=== PATIENT | male | born 1990 | race Caucasian/White ===

== ENCOUNTER 2016-11-17 16:11 | Inpatient (IN) | payer BC ==
--- NOTE | 2016-11-17 15:23 | EDPHY ---
H & P Constitutional: Initial Vital Signs Temperature (C) 36.8 C 11/17/16 16:27 Heart Rate 78 11/17/16 16:27 Respiratory Rate 20 11/17/16 16:27 Blood Pressure 164/102 H 11/17/16 16:27 O2 Sat (%) 100 11/17/16 16:27 O2 Delivery Mode Nasal Cannula O2 (L/minute) 4 Allergies/Adverse Reactions: No Known Allergies Allergy (Unverified 11/17/16 16:29) Home Medications: Medication Instructions Recorded Finasteride 11/17/16 Medical Decision Making ED Course/Re-evaluation: CHIEF COMPLAINT: Injury to right femur HISTORY OF PRESENT ILLNESS: The patient is a 26 y/o male arriving via EMS from [place] with a suspected right femur fracture. He was snowboarding and struck a tree with his right leg at unknown speeds. He denies head strike, loss of consciousness, midline spinal pain, or weakness or paresthesias. He had immediate pain in his right thigh aggravated significantly by movement or palpation with associated mid-shaft deformity. EMS did not apply traction splint because he assumed the fracture was too proximal, however manual traction significantly improved the patient's pain. He has been neurovascularly intact throughout transport. The patient also complains of [id number] left shoulder pain and left knee pain. He received 10mg IV Valium, 200mcg IV Fentanyl, and 4mg IV Zofran en route. Last PO intake at noon. REVIEW OF SYSTEMS: A 10 point review of systems was performed and is negative with the exception of the elements mentioned in the history of present illness. PHYSICAL EXAM: HR, BP, O2 Sat, RR. Temp noted General Appearance: Alert, well hydrated, appropriate, and uncomfortable- appearing. Head: Atraumatic without scalp tenderness or obvious injury Eyes: Pupils equal, round, reactive to light and accommodation, EOMI, no trauma , no injection. Ears: Clear bilaterally, no perforation, normal landmarks Nose: Atraumatic, no rhinorrhea, clear. Throat: There is no erythema or exudates, no lesions, normal tonsils, mucus membranes moist. Neck: Supple, nontender, no lymphadenopathy. Respiratory: No retractions, no distress, no wheezes, and no accessory muscle use. Lungs are clear to auscultation bilaterally. Cardiovascular: Regular rate and rhythm, no murmurs, rubs, or gallops. Bilateral carotid, radial, dorsalis pedis, and posterior tibial pulses intact. Good capillary refill all extremities. Gastrointestinal: Abdomen is soft, nontender, non-distended, no masses, no rebound, no guarding, no peritoneal signs. Musculoskeletal: Deformity and severe tenderness to right mid-femur. Pelvis is stable. Otherwise normal active ROM of all extremities, atraumatic. Neurological: Alert, appropriate, and interactive. The patient has normal DTRs and non-focal cranial nerves, motor, sensory, and cerebellar exam. Skin: No rashes, good turgor, no nodules on palpation. Abrasion to left lateral lower leg. Past medical history: denies Past surgical history: denies Family history: noncontributory Social history: on Spring Break from [place]. Friend at bedside. DIAGNOSTICS/PROCEDURES/CRITICAL CARE TIME: Study: Right hip Indication: Pain, trauma Results: Right hip x-ray was obtained. The results of the study are negative. The study was read by the radiologist, Dr. Valladares. I viewed the images myself on the PACS system. Study: Right femur Indication: Pain, trauma Results: Right femur x-ray was obtained. The results of the study are Displaced and overlapping mid femoral shaft fracture. The study was read by the radiologist, Dr. Valladares. I viewed the images myself on the PACS system. Study: Right tib/fib Indication: Pain, trauma Results: Right tib/fib x-ray was obtained. The results of the study are negative. The study was read by the radiologist, Dr. Valladares. I viewed the images myself on the PACS system. DIFFERENTIAL DIAGNOSIS: The differential diagnosis for the patient's trauma included but was not limited to intracranial injury, long bone and pelvic bone fractures, spinal injury, intra-abdominal injury, and intra-thoracic injury. MEDICAL DECISION MAKING: I upgraded this patient to a Limited Trauma Activation upon hearing the call-in report prior to his arrival. 1614: Met EMS upon arrival and took report. This is a healthy 26 y/o male who presents with severe right thigh pain secondary to traumatic injury while snowboarding. This appears to be an isolated injury; no other significant trauma noted on exam. He is neurovascularly intact with no evidence of compartment syndrome. The skin over the injury is intact. Plan for imaging and pain management. 1616: Cervical spine cleared clinically by myself using [place] [facility] rules. C-collar removed. 1mg IV Dilaudid and 30mg IV Toradol ordered for pain. 1635: Reassessed patient. Patient reports his pain has improved with Dilaudid and traction splint to a 3/10. Preliminary portable x-rays show midshaft displaced femur fracture. Ortho paged. 1643: Consulted with Dr. Flanagan, orthopedic surgeon. He will review films and call me back. 1658: Consulted with Dr. Flanagan. He requests trauma service admit patient. 1705: Consulted with Dr. Walker, surgeon. She will assess patient in the ED and admit patient. Presurgical CBC and CHEM ordered. - Data Points Medications Given: Discontinued Medications Hydromorphone HCl (Dilaudid) 1 mg IVP EDNOW ONE Stop: 11/17/16 16:28 Last Admin: 11/17/16 16:32 Dose: 1 mg Ketorolac Tromethamine (Toradol) 30 mg IVP EDNOW ONE Stop: 11/17/16 16:28 Last Admin: 11/17/16 16:32 Dose: 30 mg Departure - Departure Disposition: [facility] Inpatient Acute Clinical Impression: Closed right femoral fracture Qualifiers: Encounter type: initial encounter Femur location: shaft Fracture morphology: transverse Fracture alignment: displaced Qualified Code(s): S72.321A - Displaced transverse fracture of shaft of right femur, initial encounter for closed fracture Condition: Good Referrals: Patient,NotPresent [Unknown] - As per Instructions Report Scribed for: Jose Fletcher Report Scribed by: Marina Kelley Date of Report: 11/17/16 Time of Report: 16:12
[2016-11-17] MEDS ORDERED: KETOROLAC 30 MG/1 ML SDV IVP ONE (16:27)
[2016-11-17] MEDS ORDERED: HYDROmorphONE/DILAUDID 1 MG/ML SYR IVP ONE (16:27)
[2016-11-17] MEDS ORDERED: ACETAMINOPHEN 325 MG TAB PO PRN (17:48)
[2016-11-17] MEDS ORDERED: ONDANSETRON 4 MG/2 ML VIAL IVP PRN (17:48)
[2016-11-17 18:56] LABS: % IMMATURE GRANULYOCYTES 0.5 % (0.0-1.1); ABSOLUTE IMMATURE GRANULOCYTES 0.06 10^3/uL (0.00-0.10); ADD DIFF? NO; ADD MORPH? NO; ADD SCAN? NO; ATYPICAL LYMPHOCYTE FLAG 0 (0-99); FRAGMENT RBC FLAG 0 (0-99); HEMATOCRIT 39.2 % (40.0-51.0); HEMOGLOBIN 13.8 g/dL (13.7-17.5); LEFT SHIFT FLG 0 (0-99); LIPEMIA HEMOLYSIS FLAG 90 (0-99); MEAN CELL HEMOGLOBIN 30.1 pg (27.9-34.1); MEAN CELL HEMOGLOBIN CONCENTR. 35.2 g/dL (32.4-36.7); MEAN CELL VOLUME 85.4 fL (81.5-99.8); MEAN PLATELET VOLUME 10.1 fL (8.7-11.7); PLATELET CLUMPS FLAG 0 (0-99); PLATELET COUNT 228 10^3/uL (150-400); RED BLOOD CELL COUNT 4.59 10^6/uL (4.40-6.38); RED CELL DISTRIBUTION WIDTH 11.9 % (11.5-15.2)
[2016-11-17 19:22] LABS: ANION GAP 14 mEq/L (8-16); CALCIUM 8.7 mg/dL (8.5-10.4); CARBON DIOXIDE 20 mEq/l (22-31); CHLORIDE 107 mEq/L (97-110); CREATININE 0.9 mg/dL (0.7-1.3); GLOMERULAR FILTRATION RATE > 60; GLUCOSE 119 mg/dL (70-100); POTASSIUM 4.3 mEq/L (3.5-5.2); SODIUM 141 mEq/L (134-144)
[2016-11-17] MEDS ORDERED: BUPIVACAINE/EPI 0.5% 30 ML SDV ONE (19:50)
[2016-11-17] MEDS ORDERED: BACITRACIN 50,000 UNITS/10 ML SYR IRR ONE (19:51)
[2016-11-17] MEDS ORDERED: POLYMYXIN B SULFATE 500,000 UNIT/10 ML SYR IRR ONE (19:51)
--- NOTE | 2016-11-17 20:00 | GHP ---
[f rep st] HISTORY AND PHYSICAL DATE OF ADMISSION: 11/17/2016 CHIEF COMPLAINT: Isolated right femur fracture. HISTORY OF PRESENT ILLNESS: Terence Abraham is a 26-year-old man traveling from [place] who was snowboarding today and fell. His snowboard wrapped around a tree and he struck the tree with his femur. He was brought down as a limited trauma. He was not wearing a helmet. He denies loss of consciousness. He denies any neurovascular problems. PAST MEDICAL HISTORY: None. PAST SURGICAL HISTORY: None. FAMILY HISTORY: Noncontributory. SOCIAL HISTORY: He does not use tobacco products. He does not use drugs. He lives in [place]. He is in school studying IT. REVIEW OF SYSTEMS: Other than leg pain, 10-point review of systems is negative. PHYSICAL EXAM: GENERAL: Pleasant, well-nourished, well-groomed man in no acute distress. HEENT: Normocephalic. No gross hearing deficits. Mucous membranes moist. Pupils are equal, round, reactive to light and accommodation. No hemotympanum. No otorrhea. No rhinorrhea. Teeth fit together normally. No midface instability. NECK: No cervical spine tenderness. Full range of motion. LUNGS: Clear to auscultation bilaterally. No increased work of breathing. CARDIAC: Regular rate. CHEST: No tenderness. ABDOMEN: Bowel sounds present. Soft, nontender, nondistended. Pulses: He has 2+ radial and 2 + dorsalis pedis pulses. NEURO: Cranial nerves 2-12 grossly intact. He has full sensation in his leg. EXTREMITIES: His right leg is in a traction splint. RESULTS: Reviewed. I personally reviewed the films of his x-ray prior with a displaced femur fracture and then with the splint on place. IMPRESSION/PLAN: Terence Abrahma is a 26-year-old, healthy man with an isolated femur fracture. Dr. Flanagan will perform surgery on the patient. Since he was a trauma activation, I will admit him. However, the trauma service will sign off tomorrow as the patient is completely healthy and there are no other injuries noted. Activity orders and diet orders per Dr. Flanagan. /[id number]/MODL MTDD
[2016-11-17] MEDS ORDERED: MIDAZOLAM 2 MG/2 ML VIAL ONE (20:01)
[2016-11-17] MEDS ORDERED: PROPOFOL 200 MG/20 ML VIAL ONE (20:02)
[2016-11-17] MEDS ORDERED: ONDANSETRON 4 MG/2 ML VIAL ONE (20:02)
[2016-11-17] MEDS ORDERED: DEXAMETHASONE 4 MG/ML VIAL ONE (20:02)
[2016-11-17] MEDS ORDERED: ceFAZolin 2 GM/DEXTROSE 100 ML IV ONE (20:30)
[2016-11-17] MEDS ORDERED: fentaNYL 250 MCG/5 ML INJ ONE (20:31)
[2016-11-17] MEDS ORDERED: ROCURONIUM 50 MG/5 ML VIAL ONE ×3 (20:46)
[2016-11-17] MEDS ORDERED: PROPOFOL/EMULSION 500 MG/50 ML BOTTLE IV ONE ×2 (20:54→22:10)
[2016-11-17] MEDS ORDERED: HYDROmorphONE/DILAUDID 2 MG/ML INJ ONE ×2 (21:53→22:25)
--- NOTE | 2016-11-17 23:10 | SUROPNOTE ---
[facility] Operative Report - Surgery Brief Op-Note Pre-op Diagnosis: Right femur fracture Post-op Diagnosis: Same Surgery: Right femur IMN Surgeon: Tim Flanagan MD Wire Weaver Cloth: Ayo Gupta MD EBL: 150cc Fluids: 1200cc UOP: 400cc Anesthesia: General Post-Op Instructions: 20% WB RLE Aspirin 325 bid for 30 days
[2016-11-18] MEDS: HYDROCODONE/APAP 5/325 TAB PO PRN ×4 (04:05→22:42)
--- NOTE | 2016-11-18 08:46 | TRAUMAPN ---
Assessment/Plan: 26yo M POD#1 s/p R femur IMN for isolated fracture - Full tertiary survey performed this AM, no other suspicious findings - Plan for PT/OT, pain control restrictions per orthopedics, discussed with them this AM that trauma service will be signing off. Subjective: Doing well, pain appears well controlled Objective: Vital Signs Temp Pulse Resp BP Pulse Ox 37.3 C 85 16 128/63 H 93 11/18/16 07:48 11/18/16 07:48 11/18/16 07:48 11/18/16 07:48 11/18/16 07:48 Laboratory Results 11/17/16 18:47 11/17/16 18:47 11/17/16 11/18/16 11/19/16 05:59 05:59 05:59 Intake Total 2710 Output Total 1125 Balance 1585 Physical Exam - Physical Exam General Appearance: WD/WN, alert, no apparent distress EENT: PERRL/EOMI Neck: non-tender, full range of motion, No tender lateral, No tender midline Respiratory: chest non-tender, lungs clear, normal breath sounds Cardiac/Chest: normal peripheral pulses Abdomen: normal bowel sounds, non-tender, soft Back: Normal inspection Skin: normal color Extremities: normal range of motion Neuro/Psych: no motor/sensory deficits, normal mood/affect, oriented x 3
[2016-11-18] MEDS: ASPIRIN 325 MG TAB PO SCH (12:05)
--- NOTE | 2016-11-18 13:31 | SOAPPROG ---
DERECK Progress Note Assessment/Plan: Assessment: 1 day post op Right IMN for R femur fx stable Plan: oral analgesics Once PT/OT clears patient he will be discharged 20% weight bearing for 1 month 325mg ASA for 1 month (DVT prophylaxis) Follow up with orthopedist in [place] in two weeks 11/18/16 13:27 Subjective: Declan is doing quite well this am. He has only taken #2 5/325 [place] since surgery and rates his pain "3/10". He denies any perineal pain or numbness. He denies any sob, cp or nausea. Eating well. He got dizzy this am when getting up with PT. He will be going back to [place] upon discharge. Objective: Vital Signs Temp Pulse Resp BP Pulse Ox 36.8 C 97 18 133/80 H 94 11/18/16 12:00 11/18/16 12:00 11/18/16 12:00 11/18/16 12:00 11/18/16 12:00 Laboratory Results 11/17/16 18:47 11/17/16 18:47 11/17/16 11/18/16 11/19/16 05:59 05:59 05:59 Intake Total 2710 Output Total 1125 350 Balance 1585 -350 well appearing in NAD Right leg with diffuse numbness, no ecchymosis dressings clean dry intact NVI distally Full ROM of foot and ankle - Pending Discharge Pending Discharge Within 24 Hours: Yes Pending Discharge Date: 11/19/16 Pending Discharge Time: 11:00 ICD10 Worksheet Patient Problems: Problems Problem Status Onset Closed right femoral fracture Acute
--- NOTE | 2016-11-18 18:15 | SOAPPROG ---
DERECK Progress Note Assessment/Plan: Assessment: Plan: 11/18/16 18:14 Saw Declan just now, POD1 after Sergio my PA saw him earlier today. NV intact, including groin. feels well, pain well managed. still need to clear PT and then can go home. Dr Flanagan Objective: Vital Signs Temp Pulse Resp BP Pulse Ox 37.3 C 91 16 126/74 H 94 11/18/16 16:00 11/18/16 16:00 11/18/16 16:00 11/18/16 16:00 11/18/16 16:00 Laboratory Results 11/17/16 18:47 11/17/16 18:47 11/17/16 11/18/16 11/19/16 05:59 05:59 05:59 Intake Total 2710 Output Total 1125 950 Balance 1585 -950 ICD10 Worksheet Patient Problems: Problems Problem Status Onset Closed right femoral fracture Acute
--- NOTE | 2016-11-18 20:11 | SUROPNOTE ---
[facility] Operative Report - Surgery Femoral Intramedullary Nail OPERATIVE REPORT DATE OF PROCEDURE: 11/17/2016 SURGEON: Tim Flanagan MD SCIENTIFIC LINGUIST: Ayo Gupta MD (Fellow) PREOPERATIVE DIAGNOSIS: Right femoral shaft fracture POSTOPERATIVE DIAGNOSIS: Right femoral shaft fracture OPERATION: Right femur surgical fixation with intramedullary nail ANESTHESIA: General COMPLICATION: None SPECIMEN: None EBL: 150cc Fluids: 1200cc UOP: 400cc DISPOSITION: To PACU in stable condition COMPONENTS: 1. Perry and Nephew Trigen [place]aver[place] Gregg antegrade femoral nail 10mm x 38 cm 2. Trigen LP screw 5mm x 75mm 3. Trigen LP screw 5mm x 37.5mm CLINICAL NOTE: The patient is an 26 year [id number] male, who sustained a right femoral shaft fracture when he crashed into a tree while skiing on . He was taken to the [facility] emergency department where he was evaluated. Imaging showed a displaced femoral mid-shaft fracture. He was determined to be stable for surgery. We explained the risks, benefits, alternative procedures, expected outcomes, as well as length of convalescence. Having understood that, informed consent has been signed. The patient's operative extremity was marked in the preoperative holding area. The patient received appropriate antibiotic prophylaxis. The patient taken to the operating room on November 17, 2016 in stable condition. DESCRIPTION OF OPERATION: Once in the operating room, brief time-out was taken by nursing team, Anesthesia, and surgical staff, confirming the patient's operative site was the right lower extremity. At this point in time, the patient was placed supine on the operative table. All bony prominences were well padded. IV sedation was given to the patient. Once asleep, a laryngeal mask airway was inserted and general inhalation anesthetics were administered for duration of the case. At this point in time, the patients was leg was manipulated to obtain a reduction of the fracture, this was confirmed with fluoroscopy. The patient's right lower extremity was then prepped and draped in usual sterile fashion. An approximately 3 cm incision was made slightly superior and posterior to the greater trochanter. Incision was taken through the IT band. Blunt dissection was then performed to locate the tip of the greater trochanter. A K-wire was placed into the tip of the greater trochanter and proper position was confirmed with AP and lateral fluoroscopy views. The starting reamer was then used over the k-wire to the level of the lesser trochanter. A guide wire was then placed down the femoral canal, reduction of the fracture was obtained and confirmed with fluoroscopy, and the guidewire was passed into the distal fragment down to the metaphysis. The femur was then reamed up to a size 11.5. A Perry and Nephew 10mm x 38 cm Trigen Waverly Gregg antegrade femoral nail was then inserted down the femoral canal, fluoroscopy was used to confirm that reduction was maintained and that satisfactory position was obtained proximally and distally. After satisfactory reduction was confirmed attention was turned to locking the nail. A 1cm incision was made lateral to the greater trochanter and a 5mm x 75mm LP screw was placed from the greater trochanter exiting the lesser trochanter. Distal fixation was then obtained through a 1cm incision with a 5mm x 37.5mm LP screw. Incisions were then thoroughly irrigated. All incisions were then closed with 2- 0 vicryl for the subcutaneous layer followed by herbert for the skin. A sterile dressing was applied. The patient was then taken to the PACU in stable condition. POSTOPERATIVE PLAN: The patient will be 20% weight bearing. Rehab should focus range of motion and strengthening. He will take aspirin 325 bid for 30 days. OPERATIVE TIME: Start 21:, Finish 22:
[2016-11-19] MEDS: HYDROCODONE/APAP 5/325 TAB PO PRN (08:08)
[2016-11-19] MEDS: ASPIRIN 325 MG TAB PO SCH (08:08)
[2016-11-19 12:58] VITALS: BP 122/73; PULSE 100; RESP 18; TEMP 98.5; O2SAT 93
== END 2016-11-19 14:46 | disposition home or self-care (01) | DRG 482 ==
LOC: EDAGE → OBSVTOIN 17:00 → F3N 23:39
PROVIDERS: ADMIT Orthopaedic Surgery Sports Medicine; ATTEND Orthopaedic Surgery Sports Medicine
PROC: 0QS806Z Reposition Right Femoral Shaft with Intramedullary Internal Fixation Device, Open Approach (ICD-10-PCS; principal; 2016-11-17 20:00)
DX: S72.301A Unspecified fracture of shaft of right femur, initial encounter for closed fracture (principal); Y93.23 Activity, snow (alpine) (downhill) skiing, snowboarding, sledding, tobogganing and snow tubing; Y92.838 Other recreation area as the place of occurrence of the external cause; V00.312A Snowboarder colliding with stationary object, initial encounter
CPT/HCPCS: 92523-GN; 96374; 97116-GP; 97161-GP; 97165-GO; 97530-GO; C1713; J0690; J1100; J1170; J1885; J2250; J2405; J2704; J3010